=== PATIENT | female | born 1980 | race Caucasian/White ===

== ENCOUNTER 2018-10-29 12:03 | Emergency (ER) | payer OTHER ==
[~2018-10-29] VITALS: Ht 165.1 cm; Wt 75.7 kg
[2018-10-29 12:11] VITALS: BP 114/65; PULSE 72; RESP 20; Ht 165.1 cm; Wt 75.7 kg
[2018-10-29] MEDS ORDERED: ONDANSETRON 4 MG INJ IV STA (13:24)
[2018-10-29] MEDS ORDERED: morphine 4 MG/ML VIAL IV STA (13:24)
[2018-10-29] MEDS ORDERED: SOD CHLORIDE 0.9% 100 ML ONE (14:56)
[2018-10-29] MEDS ORDERED: IOHEXOL 300MG/ML 150 ML BTL ONE (14:56)
[2018-10-29] MEDS ORDERED: TRAM50TA2 PO (16:06)
[2018-10-29] MEDS ORDERED: FAMO-96 PO (16:06)
--- NOTE | 2018-10-29 16:10 | ERD ---
ER Documentation Chief Complaint Chief Complaint Complaijns of left upper quadrant pain x3 days HPI 38-year-old female presents with left upper abdominal pain for last 3 days. She has nausea without vomiting. Denies fevers, lower abdominal pain, urinary complaints. Patient has a history of molar removed and she is being monitored in was told she may have recurrence in the future. Denies any diarrhea or constipation. Denies . ROS All systems reviewed and are negative except as per history of present illness. Medications Home Meds Active Scripts Famotidine* (Pepcid*) 20 Mg Tablet, 20 MG PO BID for 14 Days, #30 TAB Prov:YOBANI SHAH MD 10/29/18 Tramadol HCl (Tramadol HCl) 50 Mg Tablet, 50 MG PO Q4 PRN for PAIN, #20 TAB Prov:YOBANI SHAH MD 10/29/18 Allergies Allergies: Coded Allergies: No Known Drug Allergies (Verified Allergy, Mild, 07/19/12) PMhx/Soc History of Surgery: Yes (INTRAUTARAN MOLAR TUMOR) Anesthesia Reaction: No Hx Neurological Disorder: No Hx Respiratory Disorders: No Hx Cardiac Disorders: No Hx Psychiatric Problems: No Hx Miscellaneous Medical Probl: No Hx Alcohol Use: No Hx Substance Use: No Hx Tobacco Use: No FmHx Family History: No diabetes, No coronary disease, No other Physical Exam Vitals Vital Signs Date Temp Pulse Resp B/P (MAP) Pulse Ox O2 O2 Flow FiO2 Time Delivery Rate 10/29/18 99.3 72 20 114/65 100 12:11 (81) Physical Exam Const: No acute distress Head: Atraumatic Eyes: Normal Conjunctiva ENT: Normal External Ears, Nose and Mouth. Neck: Full range of motion. No meningismus. Resp: Clear to auscultation bilaterally Cardio: Regular rate and rhythm, no murmurs Abd: Soft, tender left upper quadrant. No tenderness McBurney's point no Massey sign. No rebound or masses. R, non distended. Normal bowel sounds Skin: No petechiae or rashes Back: No midline or flank tenderness Ext: No cyanosis, or edema Neur: Awake and alert Psych: Normal Mood and Affect Result Diagram: 10/29/18 1350 10/29/18 1350 Results 24 hrs Laboratory Tests Test 10/29/18 13:50 10/29/18 13:57 White Blood Count 8.5 10^3/ul Red Blood Count 4.60 10^6/ul Hemoglobin 12.9 g/dl Hematocrit 40.5 % Mean Corpuscular Volume 88.0 fl Mean Corpuscular Hemoglobin 28.0 pg Mean Corpuscular Hemoglobin Concent 31.9 g/dl Red Cell Distribution Width 13.9 % Platelet Count 317 10^3/UL Mean Platelet Volume 10.5 fl Immature Granulocytes % 0.400 % Neutrophils % 65.2 % Lymphocytes % 20.7 % Monocytes % 8.6 % Eosinophils % 4.3 % Basophils % 0.8 % Nucleated Red Blood Cells % 0.0 /100WBC Immature Granulocytes # 0.030 10^3/ul Neutrophils # 5.5 10^3/ul Lymphocytes # 1.8 10^3/ul Monocytes # 0.7 10^3/ul Eosinophils # 0.4 10^3/ul Basophils # 0.1 10^3/ul Nucleated Red Blood Cells # 0.0 10^3/ul Urine Color YELLOW Urine Clarity CLOUDY Urine pH 7.0 Urine Specific [place] 1.017 Urine Ketones NEGATIVE mg/dL Urine Nitrite NEGATIVE mg/dL Urine Bilirubin NEGATIVE mg/dL Urine Urobilinogen NEGATIVE mg/dL Urine Leukocyte Esterase NEGATIVE Geraldo/ul Urine Microscopic RBC 0 /HPF Urine Microscopic WBC 9 /HPF Urine Squamous Epithelial Cells MODERATE /HPF Urine Amorphous Crystals MANY /HPF Urine Bacteria FEW /HPF Urine Hemoglobin NEGATIVE mg/dL Urine Glucose NEGATIVE mg/dL Urine Total Protein NEGATIVE mg/dl Sodium Level 139 mmol/L Potassium Level 4.4 mmol/L Chloride Level 106 mmol/L Carbon Dioxide Level 30 mmol/L Anion Gap 3 Blood Urea Nitrogen 9 mg/dl Creatinine 0.57 mg/dl Est Glomerular Filtrat Rate mL/min > 60 mL/min Glucose Level 85 mg/dl Calcium Level 8.8 mg/dl Total Bilirubin 0.4 mg/dl Direct Bilirubin 0.00 mg/dl Indirect Bilirubin 0.4 mg/dl Aspartate Amino Transf (AST/SGOT) 18 IU/L Alanine Aminotransferase (ALT/SGPT) 19 IU/L Alkaline Phosphatase 64 IU/L Total Protein 6.2 g/dl Albumin 3.6 g/dl Globulin 2.60 g/dl Albumin/Globulin Ratio 1.38 Lipase 57 U/L POC Beta HCG, Qualitative NEGATIVE Current Medications Medications Dose Sig/Eva Start Time Status Last (Trade) Ordered Route PRN Stop Time Admin Dose Reason Admin Morphine 4 mg ONCE STAT 10/29/18 DC 10/29/18 Sulfate IV 13:24 13:57 (morphine) 10/29/18 13:25 Ondansetron 4 mg ONCE STAT 10/29/18 DC 10/29/18 HCl (Zofran IV 13:24 13:56 Inj) 10/29/18 13:25 IV Flush 10 ml STK-MED 10/29/18 DC 10/29/18 (NS 10 ml) ONCE .ROUTE 14:56 15:09 10/29/18 14:57 Sodium 100 ml @ ud STK-MED 10/29/18 DC 10/29/18 Chloride ONCE .ROUTE 14:56 15:09 10/29/18 14:57 Iohexol 150 ml STK-MED 10/29/18 DC 10/29/18 (Omnipaque ONCE .ROUTE 14:56 15:09 300mg/ ml) 10/29/18 14:57 Procedures/MDM CBC and CMP normal. Urine shows no significant acute abnormalities. HCG negative. Given uncertain cause of pain CT abdomen and pelvis was performed which shows undescended renal stone otherwise no acute abnormalities and normal appendix. Patient had resolution of pain after Zofran and morphine. Patient presents with left upper quadrant pain of uncertain etiology. She has no signs of pneumonia, appendicitis, hepatobiliary disease, significant findings of UTI, additional concerning signs or symptoms. She has no signs of ovarian torsion. Doubt PID. She will be treated with Pepcid, tramadol, primary care follow-up and return precautions. The patient was stable with no new complaints during the ER course. Clinically, there is no current evidence to suggest meningitis, sepsis, acute abdomen, pneumonia, stroke, acute coronary syndrome, pulmonary embolism, aortic dissection or any other emergent condition appearing to require further evaluation or hospitalization. Patient counseled regarding my diagnostic impression and care plan. Prior to discharge all questions answered. Pt agrees with treatment plan and understands strict return precautions. Pt is instructed to follow up with primary care provider within 24-48 hours. Precautionary instructions provided including instructions to return to the ER if not improving or for any worsening or changing symptoms or concerns. Departure Diagnosis: Primary Impression: Abdominal pain Abdominal location: left upper quadrant Qualified Codes: R10.12 - Left upper quadrant pain Condition: Stable Patient Instructions: Abdominal Pain Additional Instructions: Examinations normal today except for undescended kidney stone which really does not cause pain. Will treat for acid or gastritis. Recheck for new or worsening symptoms-fever, vomiting, migration of pain, or with primary care doctor. YOBANI SHAH MD Oct 29, 2018 16:10
== END 2018-10-29 16:16 | disposition home or self-care (01) ==
LOC: FTE 12:03
DX: R10.12 Left upper quadrant pain (principal)
CPT/HCPCS: 36415; 74177; 80053; 81001; 81025; 83690; 85025; 96374; 96375; J2270; J2405; Q9967; Z7502; Z7610

== ENCOUNTER 2019-02-28 12:07 | Emergency (ER) | payer OTHER ==
[~2019-02-28] VITALS: Ht 154.9 cm; Wt 78.4 kg
[~2019-02-28 12:07] MED LIST: FAMO-96 PO; HYDR-4011 PO; IBUP-1561 PO; TRAM50TA2 PO
[2019-02-28 12:12] VITALS: Ht 154.9 cm; Wt 78.4 kg
[2019-02-28] MEDS ORDERED: ONDANSETRON (ODT) 4 MG TAB ODT STA (13:37)
--- NOTE | 2019-02-28 13:37 | ERD ---
ER Documentation Chief Complaint Chief Complaint vag bleed x 15 days HPI 38-year-old female, presents the emergency department, complaining of irregular vaginal bleeding for 2 weeks. The patient is a with a history of a molar . She complaining of pelvic pain, 6/10, cramping, constant. She denies fever, chills, no dysuria, no diarrhea or constipation, no abdominal pain. ROS All systems reviewed and are negative except as per history of present illness. Medications Home Meds Active Scripts Hydrocodone/Acetaminophen (Sigel 5-325 Tablet) 1 Each Tablet, 1 TAB PO BID PRN for PAIN, #7 TAB Prov:GAGAN GRISSOM MD 02/28/19 Ibuprofen* (Motrin*) 400 Mg Tab, 400 MG PO Q8, #30 TAB Prov:GAGAN GRISSOM MD 02/28/19 Famotidine* (Pepcid*) 20 Mg Tablet, 20 MG PO BID for 14 Days, #30 TAB Prov:YOBANI SHAH MD 10/29/18 Tramadol HCl (Tramadol HCl) 50 Mg Tablet, 50 MG PO Q4 PRN for PAIN, #20 TAB Prov:YOBANI SHAH MD 10/29/18 Allergies Allergies: Coded Allergies: No Known Drug Allergies (Verified Allergy, Mild, 07/19/12) PMhx/Soc History of Surgery: Yes (INTRAUTARAN MOLAR TUMOR) Anesthesia Reaction: No Hx Neurological Disorder: No Hx Respiratory Disorders: No Hx Cardiac Disorders: No Hx Psychiatric Problems: No Hx Miscellaneous Medical Probl: No Hx Alcohol Use: No Hx Substance Use: No Hx Tobacco Use: No Physical Exam Vitals Vital Signs Date Temp Pulse Resp B/P (MAP) Pulse Ox O2 O2 Flow FiO2 Time Delivery Rate 02/28/19 98.0 68 18 104/66 98 Room Air 15:20 (79) 02/28/19 98.2 69 18 103/63 98 12:12 (76) Physical Exam Const: No acute distress Head: Atraumatic Eyes: Normal Conjunctiva ENT: Normal External Ears, Nose and Mouth. Neck: Full range of motion. No meningismus. Resp: Clear to auscultation bilaterally Cardio: Regular rate and rhythm, no murmurs Abd: Soft, non tender, non distended. Normal bowel sounds Skin: No petechiae or rashes Back: No midline or flank tenderness Ext: No cyanosis, or edema Neur: Awake and alert Psych: Normal Mood and Affect Result Diagram: 02/28/19 1347 Results 24 hrs Laboratory Tests Test 02/28/19 13:47 02/28/19 14:33 02/28/19 14:34 White Blood Count 13.2 10^3/ul Red Blood Count 5.27 10^6/ul Hemoglobin 14.3 g/dl Hematocrit 45.9 % Mean Corpuscular Volume 87.1 fl Mean Corpuscular Hemoglobin 27.1 pg Mean Corpuscular 31.2 g/dl Hemoglobin Concent Red Cell Distribution Width 15.5 % Platelet Count 292 10^3/UL Mean Platelet Volume 10.9 fl Immature Granulocytes % 0.400 % Neutrophils % 80.9 % Lymphocytes % 10.4 % Monocytes % 6.5 % Eosinophils % 1.2 % Basophils % 0.6 % Nucleated Red Blood Cells % 0.0 /100WBC Immature Granulocytes # 0.050 10^3/ul Neutrophils # 10.7 10^3/ul Lymphocytes # 1.4 10^3/ul Monocytes # 0.9 10^3/ul Eosinophils # 0.2 10^3/ul Basophils # 0.1 10^3/ul Nucleated Red Blood Cells # 0.0 10^3/ul Thyroid Stimulating Hormone (TSH) 1.120 MIU/L POC Beta HCG, Qualitative NEGATIVE Bedside Urine pH (LAB) 6.5 Bedside Urine Protein (LAB) 1+ Bedside Urine Glucose (UA) Negative Bedside Urine Ketones (LAB) Negative Bedside Urine Blood 3+ Bedside Urine Nitrite (LAB) Negative Bedside Urine Leukocyte Esterase Negative (L Current Medications Medications Dose Sig/Eva Start Time Status Last (Trade) Ordered Route PRN Stop Time Admin Dose Reason Admin 1 tab ONCE ONCE 02/28/19 DC 02/28/19 Acetaminophen PO 14:00 13:49 / 02/28/19 14:01 Hydrocodone Bitart (Sigel (5/325)) Ibuprofen 600 mg ONCE ONCE 02/28/19 DC 02/28/19 (Motrin) PO 14:00 14:27 02/28/19 14:01 Ondansetron 4 mg ONCE STAT 02/28/19 DC 02/28/19 HCl (Zofran ODT 13:37 13:49 Odt) 02/28/19 13:38 Patient: GIL HUSSEIN : 1980 Age: 38 Sex: F MR #: [id number] DOS: 02/28/19 1333 Ordering MD: GAGAN GRISSOM MD Location: [facility] Room/Bed: PROCEDURE: US Pelvis. CLINICAL INDICATION: Pelvic pain. TECHNIQUE: The pelvis was evaluated with transabdominal and transvaginal sonography in the axial and sagittal planes. COMPARISON: No prior study is available for comparison. FINDINGS: Uterus: 8.4 x 4.7 x 4 cm. Endometrium: 4 mm. Right ovary: 2.7 x 1.8 cm. Left ovary: 2.7 x 2.2 x 1.8 cm. Uterine masses: There is a sub-centimeter Nabothian cyst. Ovarian masses: There is an anechoic lesion measuring 1.2 cm within the right ovary. There is a 1.2 and 1 cm anechoic lesion within the left ovary. Color Doppler and pulsed Doppler sonography demonstrate normal flow to the ovaries. Other pelvic masses: None. Free fluid: None. IMPRESSION: Bilateral ovarian cysts. Correlate with test to exclude ectopic or abnormal . RPTAT: QQ Procedures/MDM Vital signs stable. Differential diagnosis considered include UTI, cystitis, , endometriosis, pelvic inflammatory disease, ruptured ovarian cyst, ectopic pre gnancy, appendicitis, kidney stone. Less likely malignancy or acute abdomen but is still a possibility. During the ED course the patient remained stable, no new complaints. Results and clinical impression discussed with the patient who agrees with management. The patient is stable to be treated outpatient and will be discharged home with a Rx for ibuprofen, some side effects of prescribed medic ations (headache, rash, nausea, vomiting, diarrhea, drowsiness, habituation, bleeding, hypertension, interactions with other medications) were reviewed. Follow up with the primary care provider in the next 48h has been recommended. If symptoms persist, worsen or new symptoms develop, then patient should return to the ED immediately. Instructions explained and given directly by me to the patient with acknowledgment and demonstrated understanding. Disclaimer: Inadvertent spelling and grammatical errors are likely due to EHR/dictation software use and do not reflect on the overall quality of patient care. Also, please note that the electronic time recorded on this note does not necessarily reflect the actual time of the patient encounter. Departure Diagnosis: Primary Impression: Abnormal uterine bleeding Additional Impression: Ovarian cyst Condition: Stable Additional Instructions: Thank you very much for allowing us to participate in your care. Your health and safety is our top priority at [facility]. The evaluation in the emergency department has been done to rule out an acute emergency. Chronic, [id number] conditions may have not been evaluated; therefore, you need to follow up with a primary care provider in the next 48h. If symptoms persist, worsen or new symptoms develop, then patient should return to the ED immediately. Call your primary care doctor TOMORROW for an appointment during the next 2-4 days and bring all the information provided. Have prescriptions filled and follow precisely the directions on the label. If the symptoms get worse and your provider is unavailable, return to the Emergency Department immediately. GAGAN GRISSOM MD Feb 28, 2019 13:37
[2019-02-28] MEDS ORDERED: IBUPROFEN 600 MG TAB PO ONE (14:00)
[2019-02-28] MEDS ORDERED: HYDROCODONE/APAP (5/325) TAB PO ONE (14:00)
[2019-02-28 15:20] VITALS: BP 104/66; PULSE 68; RESP 18
== END 2019-02-28 15:20 | disposition home or self-care (01) ==
LOC: FTE 12:07
DX: N93.9 Abnormal uterine and vaginal bleeding, unspecified (principal); N83.202 Unspecified ovarian cyst, left side; N83.201 Unspecified ovarian cyst, right side
CPT/HCPCS: 76830; 76856; 81003; 81025; 84443; 85025; Z7502; Z7610